=== PATIENT | male | born 1945 | race African-American/Black ===

== ENCOUNTER 2020-12-17 21:00 | Emergency (ER) | payer OTHER, BC ==
[2020-12-17 21:19] VITALS: BP 193/76; PULSE 70; TEMP 98.6; BMI 26.6
== END 2020-12-17 21:37 | disposition home or self-care (01) ==
LOC: FER 21:00
DX: S52.531A Colles' fracture of right radius, initial encounter for closed fracture (principal)
CPT/HCPCS: 99283-25

== ENCOUNTER 2021-01-02 13:12 | Day surgery (SDC) | payer OTHER, BC ==
[2020-12-26 09:41] VITALS: BMI 26.6
[2021-01-02] MEDS ORDERED: ROPIVACAINE HCL 0.5% 30ML VIAL ONE (14:02)
[2021-01-02] MEDS ORDERED: MIDAZOLAM HCL 2 MG/2 ML SINGLE DOSE VIAL ONE (14:02)
[2021-01-02] MEDS ORDERED: PROPOFOL 20 ML ONE ×3 (14:17→14:18)
[2021-01-02] MEDS ORDERED: DEXAMETHASONE SOD PHOSPHATE 4 MG/1 ML VIAL ONE (14:41)
[2021-01-02] MEDS ORDERED: EPHEDRINE SULFATE/0.9% NACL/PF 50 MG/10 ML SYRINGE NR ONE (14:59)
[2021-01-02] MEDS ORDERED: GUM MASTIC/STORAX/MSAL/ALCOHOL 1 DRP DROPSBTL MC ONE (15:23)
[2021-01-02] MEDS ORDERED: ONDANSETRON 4 MG/2 ML VIAL IVPUSH PRN (15:45)
[2021-01-02] MEDS ORDERED: PROMETHAZINE HCL 25 MG/1 ML VIAL IVPUSH PRN (15:45)
[2021-01-02] MEDS ORDERED: oxyCODONE HCL 5 MG TABLET PO PRN ×2 (15:45)
[2021-01-02 17:06] VITALS: BP 137/72; PULSE 74; TEMP 98
== END 2021-01-02 17:06 | disposition home or self-care (01) ==
LOC: FASU 13:12
PROVIDERS: ATTEND Orthopaedic Surgery Hand Surgery
PROC: 0LN50ZZ Release Right Lower Arm and Wrist Tendon, Open Approach (ICD-10-PCS; 2021-01-02)
PROC: 0PSH04Z Reposition Right Radius with Internal Fixation Device, Open Approach (ICD-10-PCS; principal; 2021-01-02 14:44)
DX: S52.571A Other intraarticular fracture of lower end of right radius, initial encounter for closed fracture (principal); Y93.9 Activity, unspecified; Y92.9 Unspecified place or not applicable; Y99.9 Unspecified external cause status
CPT/HCPCS: 25609; C1713; 73110-TC-RT-FY; 82962